=== PATIENT | female | born 2000 | race Caucasian/White ===

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

== ENCOUNTER 2021-04-18 09:01 | Emergency (ER) | payer OTHER ==
[~2021-04-18] VITALS: Ht 167.6 cm; Wt 116.0 kg
[2021-04-18] MEDS ORDERED: IV NORMAL SALINE 1,000ML 1,000 ML IV ONE (10:15)
--- NOTE | 2021-04-18 10:15 | PHYS DOC ---
Past History Past Surgical History: No Surgical History General Adult EDM: Chief Complaint: SHORTNESS OF BREATH HPI: HPI: Patient is a 20-year-old female who presents to the ER with a cough and shortness of breath for 1 week. Patient has a history of asthma. She states that she took an at-home COVID-19 test and it was negative. Patient went to the urgent care today but due to tachycardia she was sent to the emergency department. Patient's heart rate varies from 1 10-1 20 in the ER. She states that she does use nebulizers at home but did not use it today. Patient denies fevers, sick exposures, nausea, vomiting, chest pain, leg pain/swelling. Patient does use estrogen containing control. Review of Systems: Review of Systems: 14 body systems of the review of systems have been reviewed. See HPI for pertinent positive and negative responses, otherwise all other systems are negative, nonpertinent or noncontributory Allergies: Allergies: Allergies Uncoded Allergies Type Severity Reaction Last Updated Verified RUBBER Allergy Unknown Rash 04/18/21 Physical Exam: PE: Constitutional: Well developed, well nourished, no acute distress, non-toxic appearance. [] HENT: Normocephalic, atraumatic, bilateral external ears normal, oropharynx moist, no oral exudates, nose normal. [] Eyes: PERRL, EOMI, conjunctiva normal, no discharge. [] Neck: Normal range of motion, no stridor Cardiovascular:Heart rate regular rhythm, no murmur [] Lungs & Thorax: Bilateral breath sounds clear to auscultation [] Abdomen: Bowel sounds normal, soft, no tenderness, no masses, no pulsatile masses. [] Skin: Warm, dry, no erythema, no rash. [] Back: Normal range of motion Extremities: No tenderness, no cyanosis, no clubbing, ROM intact, no edema. [] Neurologic: Alert and oriented X 3, normal motor function, normal sensory function, no focal deficits noted. [] Psychologic: Affect normal, judgement normal, mood normal. [] Current Patient Data: Labs: Laboratory Tests Test 04/18/21 10:24 White Blood Count 9.3 x10^3/uL Red Blood Count 4.89 x10^6/uL Hemoglobin 13.8 g/dL Hematocrit 40.9 % Mean Corpuscular Volume 84 fL Mean Corpuscular Hemoglobin 28 pg Mean Corpuscular Hemoglobin Concent 34 g/dL Red Cell Distribution Width 13.7 % Platelet Count 354 x10^3/uL Neutrophils (%) (Auto) 68 % Lymphocytes (%) (Auto) 26 % Monocytes (%) (Auto) 4 % Eosinophils (%) (Auto) 1 % Basophils (%) (Auto) 1 % Neutrophils # (Auto) 6.3 x10^3uL Lymphocytes # (Auto) 2.4 x10^3/uL Monocytes # (Auto) 0.4 x10^3/uL Eosinophils # (Auto) 0.1 x10^3/uL Basophils # (Auto) 0.1 x10^3/uL Sodium Level 137 mmol/L Potassium Level 4.0 mmol/L Chloride Level 102 mmol/L Carbon Dioxide Level 24 mmol/L Anion Gap 11 Blood Urea Nitrogen 7 mg/dL Creatinine 0.5 mg/dL Estimated GFR (Cockcroft-Gault) 158.9 BUN/Creatinine Ratio 14 Glucose Level 109 mg/dL Calcium Level 9.0 mg/dL Total Bilirubin 0.3 mg/dL Aspartate Amino Transf (AST/SGOT) 16 U/L Alanine Aminotransferase (ALT/SGPT) 21 U/L Alkaline Phosphatase 95 U/L Total Protein 7.7 g/dL Albumin 3.3 g/dL Albumin/Globulin Ratio 0.8 Current Medications Medications (Trade) Dose Ordered Sig/Hernando Route PRN Reason Start Time Stop Time Status Last Admin Dose Admin Sodium Chloride 1,000 ml @ 1,000 mls/hr 1X ONCE IV 04/18/21 10:15 04/18/21 11:14 DC Iohexol (Omnipaque 350 Mg/ml) 100 ml 1X ONCE IV 04/18/21 10:30 04/18/21 10:31 DC 04/18/21 10:45 Info (Do NOT chart on this entry -- for MONITORING) 1 each PRN DAILY PRN MC SEE COMMENTS 04/18/21 10:30 04/20/21 10:29 Vital Signs: Vital Signs Date Time Temp Pulse Resp B/P (MAP) Pulse Ox O2 Delivery O2 Flow Rate FiO2 04/18/21 09:24 98.8 117 20 145/69 96 EKG: EKG: EKG performed by ER staff at 1150 shows sinus tachycardia rate of 107, read by Dr. Davis at 1159 Radiology/Procedures: Radiology/Procedures: PROCEDURE: CT ANGIOGRAPHY CHEST CTA CHEST INDICATION: tachy, soa Comparison: None. TECHNIQUE: Following the uneventful administration of intravenous contrast, 100 cc Omnipaque 350, axial CT sections were obtained through the lungs and upper abdomen. Multiplanar reconstructions and MIP images were obtained. RS compliance statement: One or more of the following individualized dose reduction techniques were utilized for this examination: 1. Automated exposure control 2. Adjustment of the mA and/or kV according to patient size 3. Use of iterative reconstruction technique FINDINGS: Pulmonary arteries: No large central pulmonary thromboembolic disease. Distal branches are not well evaluated due to suboptimal contrast opacification. Lungs and Airways: No pulmonary mass or consolidation. No abnormality of the central airways. Pleura: The pleural spaces are normal. Heart and Mediastinum: The visualized thyroid is normal in size and attenuation. No axillary or supraclavicular lymphadenopathy. No mediastinal, hilar or retrocrural lymphadenopathy. The heart and pericardium are within normal limits. The great vessels of the thorax are normal. Abdomen: Limited images through the upper abdomen show no abnormality of the visualized organs. Bones and Soft Tissues: The visualized bones and chest wall soft tissues are within normal limits. IMPRESSION: 1. No large central pulmonary thromboembolic disease. Distal branches are not well evaluated due to suboptimal contrast opacification. 2. No pulmonary mass or consolidation. Electronically signed by: Luis Eduardo Null MD (04/18/2021 11:04 AM) [id number] DICTATED AND SIGNED BY: LUIS EDUARDO NULL MD DATE: 04/18/21 1058 CC: ALBIN LIM APRN; JD AMARAL MD ~MTH0 0 [] Heart Score: C/O Chest Pain: No Risk Factors: Risk Factors: DM, Current or recent (<one month) smoker, HTN, HLP, family history of CAD, obesity. Risk Scores: Score 0 - 3: 2.5% MACE over next 6 weeks - Discharge Home Score 4 - 6: 20.3% MACE over next 6 weeks - Admit for Clinical Observation Score 7 - 10: 72.7% MACE over next 6 weeks - Early Invasive Strategies Course & Med Decision Making: Course & Med Decision Making Pertinent Labs and Imaging studies reviewed. (See chart for details) Patient is a 20-year-old female being seen in the ER for shortness of breath and a cough. Patient is afebrile. She is tachycardic from 110-120. Patient's physical exam is reassuring. Patient also had lab work performed in the ER. She was given a liter of normal saline for her tachycardia. Lung sounds are clear. Patient tested for COVID-19 in the ER. Due to having tachycardia a CTA was performed. Her PERC rule Was a 2 and a PE could not be ruled out on her. Work-up in the ER was unremarkable. CT scan was negative for any pulmonary embolism. Patient's heart rate upon reevaluation was 98 and she is 97% on room air. Patient was Covid tested in the ER and is pending at this time. Patient will be notified of her results when they become available in approximately 2 days. Patient advised to isolate until those results become available. Patient advised to continue taking her nebulizer treatments at home for any shortness of breath and she can take Tessalon Perles that was prescribed from the ER today.. I discussed with patient all findings and diagnostic testing as well as the need to follow-up with PCP for further evaluation and treatment or return to the ER if any new or worsening symptoms. Strict return precautions were also discussed at length. Patient voiced understanding and agreement with the plan. Patient is hemodynamically stable at the time of disposition. Martina Disclaimer: Martina Disclaimer: This electronic medical record was generated, in whole or in part, using a voice recognition dictation system. Departure Departure: Impression: Primary Impression: Person under investigation for COVID-19 Additional Impression: Cough Disposition: 01 HOME / SELF CARE / HOMELESS Condition: GOOD Referrals: JD AMARAL MD (PCP) Patient Instructions: Cough, Adult Additional Instructions: You were seen in the ER today for a cough for 1 week. Your work-up in the ER was unremarkable. Your CTA scan of your chest did not show a blood clot. Prior to your discharge her vital signs were stable. Your lung sounds were clear and your physical exam was reassuring. You were tested in the ER for COVID-19. You will be notified of those results when they become available in approximately 2 days. Please self isolate until you receive these results. For any shortness of breath continue taking your nebulizer treatments at home. For fevers you can take Tylenol/ibuprofen. You are being discharged home with a medication for cough. Please take this as directed. Follow-up with your primary care provider tomorrow regarding your ER visit. If you develop increased shortness of breath, worsening of your cough, chest pain, leg pain or swelling, high fevers refractory to treatment please return to the ER. EMERGENCY DEPARTMENT GENERAL DISCHARGE INSTRUCTIONS Thank you for coming to [facility] (ED) today and trusting us with you care. We trust that you had a positivie experience in our Emergency Department. If you wish to speak to the department management, you may call the director at [phone]. YOUR FOLLOW UP INSTRUCTIONS ARE FOLLOWS: 1. Do you have a private Doctor? If you do not have a private doctor, please ask for a resource list of physicians or clinics that may be able to assist you with follow up care. 2. The Emergency Physician has interpreted your x-rays. The X-Ray specialist will also review them. If there is a change in the findings, you will be notified in 48 hours when at all possible. 3. A lab test or culture has been done, your results will be reviewed and you will be notified if you need a change in treatment. ADDITIONAL INSTRUCTIONS AND INFORMATION: 1. Your care today has been supervised by a physician who is specially trained in emergency care. Many problems require more than one evaluation for a complete diagnosis and treatment. We recommend that you schedule your follow up appointment as recommended to ensure complete treatment of you illness or injury. If you are unable to obtain follow up care and continue to have a problem, or if your condition worsens, we recommend that you return to the ED. 2. We are not able to safely determine your condition over the phone nor are we able to give sound medical advice over the phone. For these safety reasons, if you call for medical advice we will ask you to come to the ED for further evaluation. 3. If you have any questions regarding these discharge instructions please call the ED at [phone]. SAFETY INFORMATION: In the interest of safety, wellness, and injury prevention; we encourage you to wear your sealbelt, if you smoke; quite smoking, and we encourage family to use a protective helmet for bicycling and other sporting events that present an increased risk for head injury. IF YOUR SYMPTOMS WORSEN OR NEW SYMPTOMS DEVELOP, OR YOU HAVE CONCERNS ABOUT YOUR CONDITION; OR IF YOUR CONDITION WORSENS WHILE YOU ARE WAITING FOR YOUR FOLLOW UP APPOINTMENT; EITHER CONTACT YOUR PRIMARY CARE DOCTOR, THE PHYSICIAN WHOSE NAME AND NUMBER YOU WERE GIVEN, OR RETURN TO THE ED IMMEDIATELY. Scripts Benzonatate (TESSALON PERLE) 100 Mg Capsule 1 CAP PO TID for cough for 3 Days, #9 CAP 0 Refills Prov: ALBIN LIM APRN 04/18/21 ALBIN LIM APRN Apr 18, 2021 10:15
[2021-04-18] MEDS ORDERED: CONTRAST GIVEN. MC PRN (10:30)
[2021-04-18] MEDS ORDERED: IOHEXOL 350 MG/ML 100 ML VIAL. IV ONE (10:30)
[2021-04-18 10:43] LABS: BASO # 0.1 x10^3/uL (0.0-0.2); BASO % 1 % (0-3); EOS # 0.1 x10^3/uL (0.0-0.7); EOS % 1 % (0-3); HEMATOCRIT 40.9 % (36.0-47.0); HEMOGLOBIN 13.8 g/dL (12.0-15.5); LYMPH # 2.4 x10^3/uL (1.0-4.8); LYMPH % 26 % (24-48); MEAN CORPUSCULAR HEMOGLOBIN 28 pg (25-35); MEAN CORPUSCULAR HGB CONC 34 g/dL (31-37); MEAN CORPUSCULAR VOLUME 84 fL (79-100); MONO # 0.4 x10^3/uL (0.0-1.1); MONO % 4 % (0-9); NEUT # 6.3 x10^3uL (1.8-7.7); NEUT % 68 % (31-73); PLATELET COUNT 354 x10^3/uL (140-400); RED BLOOD COUNT 4.89 x10^6/uL (3.50-5.40); RED CELL DISTRIBUTION WIDTH 13.7 % (11.5-14.5); WHITE BLOOD COUNT 9.3 x10^3/uL (4.0-11.0)
[2021-04-18 10:51] LABS: CREATININE 0.5 mg/dL (0.6-1.0); GFR 158.9
[2021-04-18 10:57] LABS: ALBUMIN 3.3 g/dL (3.4-5.0); ALBUMIN/GLOBULIN RATIO 0.8 (1.0-1.7); TOTAL BILIRUBIN 0.3 mg/dL (0.2-1.0); TOTAL PROTEIN 7.7 g/dL (6.4-8.2)
--- NOTE | 2021-04-18 11:06 | RAD ---
CTA CHEST INDICATION: tachy, soa Comparison: None. TECHNIQUE: Following the uneventful administration of intravenous contrast, 100 cc Omnipaque 350, axi al CT sections were obtained through the lungs and upper abdomen. Multiplanar reconstructions and MIP images were obtained. PQRS compliance statement: One or more of the following individualized dose reduction techniques were utilized for this examinat ion: 1. Automated exposure control 2. Adjustment of the mA and/or kV according to patient size 3. Use of iterative reconstruction technique FINDINGS: Pulmonary arteries: No large central pulmonary thromboembolic disease. Distal branches are not well e valuated due to suboptimal contrast opacification. Lungs and Airways: No pulmonary mass or consolidation. No abnormality of the central airways. Pleura: The pleural spaces are normal. Heart and Mediastinum: The visualized thyroid is normal in size and attenuation. No axillary or supra clavicular lymphadenopathy. No mediastinal, hilar or retrocrural lymphadenopathy. The heart and peric ardium are within normal limits. The great vessels of the thorax are normal. Abdomen: Limited images through the upper abdomen show no abnormality of the visualized organs. Bones and Soft Tissues: The visualized bones and chest wall soft tissues are within normal limits. IMPRESSION: 1. No large central pulmonary thromboembolic disease. Distal branches are not well evaluated due to s uboptimal contrast opacification. 2. No pulmonary mass or consolidation. Electronically signed by: Markie Gomez MD (04/18/2021 11:04 AM) [id number]
[2021-04-18] MEDS ORDERED: BENZ100C PO (11:45)
[2021-04-18 12:10] VITALS: BP 139/76
--- NOTE | 2021-04-18 12:44 | EKG ---
[address] [address] Test Date: 2021-04-18 Test Time: 11:50:47 Pat Name: SATHYA HERNANDEZ Department: Room: Gender: F [employer] Supervisor: NEETU : 2000 Requested By: ALBIN LIM Order Number: [id number] Reading MD: Bryson Dsouza MD Measurements Intervals [place] Rate: 107 P: 40 MS: 138 QRS: 8 QRSD: 80 T: 23 QT: 342 QTc: 462 Interpretive Statements SINUS TACHYCARDIA Electronically Signed On 04-21-2021 9:33:38 CDT by Bryson Dsouza MD
== END 2021-04-18 12:30 | disposition home or self-care (01) ==
LOC: ER 09:01
DX: U07.1 COVID-19 (principal)
CPT/HCPCS: 36415; 71275; 80053; 85025; 93005; 96360; 99285; C9803; J7030; Q9967; U0003